=== PATIENT | female | born 1985 ===

== ENCOUNTER 2016-09-27 20:09 | Emergency (ER) | payer BC ==
[2016-09-27 21:46] VITALS: BP 103/67
[2016-09-27] MEDS ORDERED: Amoxicillin PO (*) 500 MG CAP PO ONE (23:24)
--- NOTE | 2016-09-27 23:51 | UC ---
Throat Pain/Nasal Robert HPI - HPI Summary HPI Summary: [address], COUGH, SNEEZING FATIGUE AND MALAISE. SNEEZING COUGH HAVE MOSTLY RESOLVED. ST AND FATIGUE REMAIN. - History of Current Complaint Chief Complaint: UCRespiratory Stated Complaint: SORE THROAT, AND COUGH Time Seen by Provider: 09/27/16 22:40 Hx Obtained From: Patient Hx Last Menstrual Period: <1 WEEK Onset/Duration: Sudden Onset, Lasting Days - 3, Still Present Severity: Moderate Pain Intensity: 7 Pain Scale Used: 0-10 Numeric Cough: Nonproductive Associated Signs & Symptoms: Positive: Dysphagia - PAIN. Negative: Drooling, Wheezing, Hoarseness, Sinus Discomfort, Nasal Discharge, Fever, Vomiting, Rash - Allergies/Home Medications Allergies/Adverse Reactions: Allergies Allergy/AdvReac Type Severity Reaction Status Date / Time Minocycline Allergy Severe LUPUS-LIKE Verified 09/27/16 21:46 SYNDROME Home Medications: Home Medications Ibuprofen TAB* [Advil TAB*] 400 mg PO PRN 09/27/16 [History] Orpszntdtjwkh-Dijapsmqel-Smuqn [Nyquil Severe Cold/Flu 5-6.25-10-325 mg/15Ml] 1 liq PO PRN 09/27/16 [History] Sertraline* [Zoloft*] 100 mg PO DAILY 09/27/16 [History Confirmed 09/27/16] PMH/Surg Hx/FS Hx/Imm Hx Previously Healthy: Yes - Surgical History Surgical History: Yes Surgery Procedure, Year, and Place: WISDOM TEETH - Family History Known Family History: Positive: Hypertension, Diabetes - Social History Occupation: Employed Full-time Lives: With Family Alcohol Use: Occasionally Substance Use Type: None Smoking Status (MU): Never Smoked Tobacco Review of Systems Constitutional: Fatigue Skin: Negative Eyes: Negative ENT: Sore Throat Respiratory: Cough Cardiovascular: Negative Gastrointestinal: Negative Genitourinary: Negative Motor: Negative Neurovascular: Negative Musculoskeletal: Negative Neurological: Negative Psychological: Negative All Other Systems Reviewed And Are Negative: Yes Physical Exam Triage Information Reviewed: Yes Appearance: Well-Appearing, No Pain Distress, Well-Nourished Vital Signs: Initial Vital Signs Temp 98.2 F 09/27/16 21:43 Pulse 100 09/27/16 21:43 Resp 16 09/27/16 21:43 BP 103/67 09/27/16 21:43 Pulse Ox 100 09/27/16 21:43 Vital Signs Reviewed: Yes Eyes: Positive: Conjunctiva Clear. Negative: Discharge ENT: Positive: Hearing grossly normal, Pharyngeal erythema, TMs normal, Tonsillar swelling, Tonsillar exudate. Negative: Nasal congestion, Nasal drainage, Trismus, Muffled/hoarse voice Neck: Positive: Supple, Tenderness @, Enlarged Nodes @ Respiratory: Positive: Lungs clear, Normal breath sounds, No respiratory distress, No accessory muscle use Cardiovascular: Positive: RRR, No Murmur Musculoskeletal Exam: Normal Neurological: Positive: Alert, Muscle Tone Normal Psychological: Positive: Age Appropriate Behavior Skin Exam: Normal Throat Pain/Nasal Course/Dx - Differential Dx/Diagnosis Differential Diagnosis/HQI/PQRI: Influenza, Mononucleosis, Pharyngitis, Sinusitis, Tonsillitis, URI Provider Diagnoses: STREP THROAT Discharge - Discharge Plan Condition: Stable Disposition: HOME Prescriptions: Amoxicillin CAP* 500 mg PO Q12H #19 cap Patient Education Materials: Strep Throat (ED) Referrals: No Primary Care Phys,NOPCP [Primary Care Provider] - Additional Instructions: AMOXICILLIN: Amoxicillin is a member of the penicillin family. It covers the germs likely to cause ear, bronchial, and urinary infections better than plain penicillin. Amoxicillin can be taken without regard to meals. Nausea after taking the medication is rare, but can occur. Diarrhea can occur, particularly in small children. Vaginal yeast infections and oral thrush in infants are also common. Contact your physician if these problems occur. Allergy to penicillins is common. If you have had an allergic reaction to any drug of the penicillin family, you should never take any other penicillin. Notify your doctor at once if you develop hives, itching, swelling, faintness, or shortness of breath. Less serious side effects can include nausea or diarrhea. ANY TIME YOU TAKE AN ANTIBIOTIC, IT IS IMPORTANT TO REPLENISH THE BODY'S BALANCE OF "GOOD" BACTERIA BY EATING HIGH QUALITY CULTURED FOOD SUCH YOGURT, SAURKRAUT OR MAURICE CHI AND/OR TAKING A PROBIOTIC SUPPLEMENT. DISCUSSED, TRY MAGIC MOUTHWASH TO CONTROL PAIN PRIOR TO EATING. FOLLOW-UP CARE: You should establish with a private physician for follow-up care. If you are unable to get a timely appointment, or if you are worsening, call us or return for re-evaluation. An additional resource available to assist in finding the appropriate physician for your health care needs is the [facility]ician Referral Center. You may contact them by calling [phone].
== END 2016-09-27 23:43 | disposition home or self-care (01) ==
LOC: UCEAST 20:09
DX: J02.0 Streptococcal pharyngitis (principal)
CPT/HCPCS: 87651; 99202; A9270-GY; G0463

== ENCOUNTER 2018-08-25 19:14 | Emergency (ER) | payer BC ==
--- OUTSIDE RECORDS SUMMARY | 2018-08-25 19:21 | XMS REPORT ---
:1985 External Reference #:[id number] Author Organization [facility] Address [address] [place] [address] Phone [phone] Care Team Providers Name Role Phone Benito Dominguez MD Care Team Information Customer Support Engineer Unavailable Benito Dominguez MD Primary Care Physician Unavailable Payers Type Date Identification Numbers Payment Provider Subscriber Commercial Effective: Policy Number: BC/BS Of ALEXIS Татьяна Peres 2017 [id number] PayID: [id number] [place] [address] Problems Description No Information Family History Date Family Member(s) Problem(s) Comments Father 84 Father Prostate Cancer Father Colon Cancer Father Chronic Obstructive Pulmonary Disease (COPD) Mother 72 Mother Diabetes Mellitus, II Mother Depression Mother Skin Cancer Social History Type Date Description Comments Occupation Sustainability Project Coordinator ETOH Use Currently consumes alcohol Smoking Nonsmoker Daily Caffeine Some Caffeine Allergies, Adverse Reactions, Alerts Date Description Reaction Status Severity Comments 08/08/2018 Minocycline active Medications Medication Date Status Form Strength Qnty SIG Indications Ordering Provider Claritin Active Capsules 10mg use 1 by Unknown 0 mouth q.d Vital Signs Date Vital Result Comment 08/08/2018 BP Systolic 106 mmHg BP Diastolic 70 mmHg Heart Rate 68 /min Body Temperature 98.1 F Respiratory Rate 16 /min Height 63 inches 5'3" Weight 150.00 lb BMI (Body Mass Index) 26.6 kg/m2 Results Description No Information Procedures Description No Information Plan of Care 08/08/2018 - Benito Dominguez, [id number] Strain of right quadriceps muscle , fascia and tendon, initComments:discussed ice massage, stretching, eccentric contraction exercises.AllComments:~B_~U_Medication Management~b_~u_ Patient Understands medications she's taking? Yes No Are there Barriers to Adherence? Yes No Has the patient been asked about herbal supplements and therapies, and OTC meds? Yes No
[2018-08-25 19:24] VITALS: BP 135/78
--- NOTE | 2018-08-25 19:27 | UC ---
Lower Extremity/Ankle HPI - HPI Summary HPI Summary: 32-year-old female presents with complaints of nontraumatic left ankle pain, redness, and swelling. States she first developed this about 6 weeks ago, took swbo-ikk-hqqggyg pain medication, and symptoms resolved spontaneously after a few days. States she started feeling a little pain again about a week ago but today noticed an increase in the pain with redness and swelling to the lateral aspect of her ankle. Denies injury, fever, chills, calf pain or swelling, numbness, or tingling. - History of Current Complaint Chief Complaint: UCLowerExtremity Stated Complaint: ANKLE PAIN Time Seen by Provider: 08/25/18 19:16 Hx Obtained From: Patient Hx Last Menstrual Period: 08/16/18 Pain Intensity: 3 - Allergies/Home Medications Allergies/Adverse Reactions: Allergies Allergy/AdvReac Type Severity Reaction Status Date / Time grapefruit Allergy "TONGUE Verified 08/25/18 19:24 GOES NUMB" minocycline Allergy LUPUS-LIKE Verified 08/25/18 19:24 SYNDROME PMH/Surg Hx/FS Hx/Imm Hx Previously Healthy: Yes - Denies significant PMH - Surgical History Surgical History: Yes Surgery Procedure, Year, and Place: WISDOM TEETH - Family History Known Family History: Positive: Hypertension, Diabetes - Social History Occupation: Employed Full-time Lives: With Family Alcohol Use: Occasionally Substance Use Type: None Smoking Status (MU): Never Smoked Tobacco Review of Systems All Other Systems Reviewed And Are Negative: Yes Constitutional: Negative: Fever, Chills Skin: Positive: Other - erythema left ankle Respiratory: Positive: Negative Cardiovascular: Positive: Negative Motor: Negative: Weakness Neurovascular: Negative: Decreased Sensation Musculoskeletal: Positive: Arthralgia - See HPI Physical Exam - Summary Physical Exam Summary: GENERAL APPEARANCE: Well developed, well nourished, alert and cooperative, and appears to be in no acute distress. CARDIAC: Normal S1 and S2. No S3, S4 or murmurs. Rhythm is regular. There is no peripheral edema, cyanosis or pallor. Extremities are warm and well perfused. Capillary refill is less than 2 seconds. Peripheral pulses intact. LUNGS: Clear to auscultation without rales, rhonchi, wheezing or diminished breath sounds. ABDOMEN: Positive bowel sounds. Soft, nondistended, nontender. No guarding or rebound. No masses or hepatosplenomegally. MUSKULOSKELETAL: Tenderness over lateral left ankle with erythema, mild- moderate edema, and increased warmth. No gross deformity. Calf supple and nontender. NEUROLOGICAL: Strength and sensation intactl. SKIN: Skin normal color, texture and turgor with no lesions or eruptions. Triage Information Reviewed: Yes Vital Signs: Initial Vital Signs Temp 98.5 F 08/25/18 19:20 Pulse 84 08/25/18 19:20 Resp 16 08/25/18 19:20 BP 135/78 08/25/18 19:20 Pulse Ox 97 08/25/18 19:20 Vital Signs Reviewed: Yes Lower Extremity Course/Dx - Course Course Of Treatment: 32-year-old female presents with complaints of nontraumatic left ankle pain, redness, and swelling. States she first developed this about 6 weeks ago, took oofk-lee-wmlireh pain medication, and symptoms resolved spontaneously after a few days. States she started feeling a little pain again about a week ago but today noticed an increase in the pain with redness and swelling to the lateral aspect of her ankle. Denies injury, fever, chills, calf pain or swelling, numbness, or tingling. Afebrile. Vital signs are stable. Exam reveals an adult female in no acute distress. She has some tenderness, swelling, erythema, and increased warmth to the lateral left ankle. Circulation and sensation are intact. Remainder of exam was unremarkable. Considering pain is not related to a traumatic injury I do not feel that x-rays are warranted at this time. I suspect based on her history that this may be an inflammatory process such as gout. We'll treat her with naproxen 500 mg every 12 hours 7 days and then as needed for pain. She was given information about a low purine diet. She is to follow-up with her primary care provider in 7 days if symptoms do not improve. Warning symptoms were reviewed with the patient. She verbalizes understanding and agrees with plan of care. - Differential Dx/Diagnosis Differential Diagnosis/HQI/PQRI: Arthritis, Fracture (Closed), Gout, Sprain, Strain Provider Diagnosis: Pain and swelling of left ankle Discharge - Sign-Out/Discharge Documenting (check all that apply): Patient Departure All imaging exams completed and their final reports reviewed: No Studies - Discharge Plan Condition: Stable Disposition: HOME Prescriptions: Naproxen [Naproxen 500 mg tab] 500 mg PO Q12HR #30 tablet Patient Education Materials: Low Purine Diet (ED), Gout (ED) Referrals: No Primary Care Phys,NOPCP [Primary Care Provider] - Additional Instructions: With no history of injury I do not feel that an x-ray is warranted at this time. I suspect that your pain and swelling may be from gout although other causes of inflammation cannot be fully excluded. Take naproxen 500 mg 1 tab every 12 hours with food for the next 7 days then may take as needed for pain. You may continue to walk and bear weight as tolerated. Avoid strenuous activities until you are pain-free. I have provided you with some information about a prurine-free diet which can help prevent flare ups if this is gout. Follow up with your primary care provider in 7 days if no improvement in symptoms. Seek immediate medical attention if you develop fever greater than 100.5 F, have pain that is not managed with pain medication, increased redness or swelling, or any worsening of symptoms. - Billing Disposition and Condition Condition: STABLE Disposition: Home
== END 2018-08-25 19:45 | disposition home or self-care (01) ==
LOC: UCEAST 19:14
DX: M25.572 Pain in left ankle and joints of left foot (principal); M25.472 Effusion, left ankle; Z88.1 Allergy status to other antibiotic agents; Z91.018 Allergy to other foods
CPT/HCPCS: 99212; G0463